=== PATIENT | female | born 1970 | race African-American/Black ===

== ENCOUNTER → 2016-11-03 | Outpatient (CLI) | payer OTHER ==
--- NOTE | 2016-11-03 14:37 | REPMRS ---
Patient History The patient states she had a clinical breast exam in August 2016. Family history of breast cancer in maternal cousin at age 49. Digital Mammo Screening Bilat: November 03, 2016 - Exam #: [id number] Bilateral CC and MLO view(s) were taken. Technologist: Nga Maldonado Technologist Prior study comparison: November 01, 2014, digital bilateral screening mammo, performed at [facility]. FINDINGS: There are scattered fibroglandular densities. There has been no change in the appearance of the mammogram from the prior studies. There is a mild amount of scattered fibroglandular density which is fairly symmetric. There is no interval development of dominant mass, architectural distortion, or clustered microcalcification suggestive of malignancy. ASSESSMENT: BI-RADS/ACR category 1 mammogram. Negative. Recommendation Routine screening mammogram in 1 year (for women over age 40). This mammogram was interpreted with the aid of an FDA-approved computer-aided dectection system. Electronically Signed By: Derek Vázquez MD 11/03/16 [id number]
== END ==
LOC: M RAD 13:22
PROVIDERS: ATTEND Obstetrics & Gynecology
DX: Z12.31 Encounter for screening mammogram for malignant neoplasm of breast (principal)

== ENCOUNTER → 2018-09-01 | Outpatient (CLI) | payer OTHER ==
--- NOTE | 2018-09-01 19:10 | REP ---
MRI RIGHT WRIST WITH AND WITHOUT CONTRAST: HISTORY: Palpable lump dorsal forearm distally. Areas marked on the skin. Multiple sequences are obtained in the axial, coronal and sagittal planes prior to and following the intravenous administration of 20 mL ProHance. At the site of the palpable lump fatty tissue is seen which is not encapsulated. The area involved is approximately 3.5 cm in length with a thickness of about 8 mm and a width transversely of 2.8 cm. This follows fat signal on all sequences and does not significantly enhance consistent with focal poorly encapsulated lipoma or lipomatous proliferation. There is no other cystic or solid mass seen in this region. No other abnormal enhancement is seen. There is a tear of the triangular fibrocartilage complex at the ulnar styloid insertion. Scapholunate and lunatotriquetral ligaments are intact. The flexor and extensor tendons are intact without evidence of tenosynovitis. There is mild fluid in the distal radial ulnar joint. There is no underlying abnormal bone marrow signal with no occult fracture. IMPRESSION: At the site of the palpable lump there is subcutaneous fat as discussed above most consistent with a poorly encapsulated lipoma. There is no abnormal enhancement in this region. There is a tear of the triangular fibrocartilage complex at the ulnar styloid insertion. There is mild fluid in the distal radial ulnar joint. Electronically Signed by Toro Donahue MD 09/04/2018 01:09 P
== END ==
LOC: M RAD 11:50
PROVIDERS: ATTEND Physician Assistant
DX: D17.21 Benign lipomatous neoplasm of skin and subcutaneous tissue of right arm (principal)

== ENCOUNTER 2019-10-11 15:35 | Emergency (ER) | payer OTHER ==
[~2019-10-11] VITALS: Ht 162.6 cm; Wt 105.3 kg
[2019-10-11] MEDS ORDERED: ATOR1TAB19 (15:48)
[2019-10-11] MEDS ORDERED: LOSA100T50 (15:48)
[2019-10-11] MEDS ORDERED: DILT1CAP46 (15:48)
[2019-10-11] MEDS ORDERED: VITA50005 (15:48)
[2019-10-11] MEDS ORDERED: HYDR25TAB (15:48)
[2019-10-11] MEDS ORDERED: CARV12.5 (15:48)
--- NOTE | 2019-10-11 17:00 | REPVR ---
PROCEDURE INFORMATION: Exam: XR Chest, 1 View Exam date and time: 10/11/2019 4:40 PM Age: 49 years old Clinical indication: Chest pain TECHNIQUE: Imaging protocol: XR of the chest Views: 1 view. COMPARISON: No relevant prior studies available. FINDINGS: Lungs: Unremarkable. No consolidation. Pleural space: Unremarkable. No pleural effusion. No pneumothorax. Heart/Mediastinum: Unremarkable. No cardiomegaly. Bones/joints: Unremarkable. IMPRESSION: No acute findings. Electronically signed by: Ivan Garduno On 10/11/2019 17:00:15 PM
[2019-10-11 17:09] LABS: BASO % 0.2 % (0.0-1.0); EOS # 0.1 10^3/uL (0.0-0.5); EOS % 0.9 % (0.0-3.0); HEMATOCRIT 39.5 % (36.0-47.0); LYMPH # 1.5 10^3/uL (1.5-5.0); LYMPH % 27.4 % (24.0-44.0); MEAN CORPUSCULAR HEMOGLOBIN 32.1 pg (27.0-33.0); MEAN CORPUSCULAR HGB CONC 32.9 g/dl (32.0-36.5); MEAN CORPUSCULAR VOLUME 97.5 fl (80.0-96.0); MONO # 0.3 10^3/uL (0.0-0.8); MONO % 5.9 % (0.0-5.0); NEUTROPHILS # 3.7 10^3/uL (1.5-8.5); NEUTROPHILS % 65.4 % (36.0-66.0); PLATELET COUNT, AUTOMATED 232 10^3/uL (150-450); RED BLOOD COUNT 4.05 10^6/uL (4.00-5.40); WHITE BLOOD COUNT 5.6 10^3/uL (4.0-10.0)
[2019-10-11 17:33] LABS: ALBUMIN 3.7 GM/DL (3.2-5.2); ALT/SGPT 18 U/L (12-78); BILIRUBIN,DIRECT 0.1 MG/DL (0.0-0.2); BILIRUBIN,TOTAL 0.4 MG/DL (0.2-1.0); BLOOD UREA NITROGEN 13 MG/DL (7-18); CALCIUM LEVEL 9.1 MG/DL (8.5-10.1); CARBON DIOXIDE LEVEL 30 MEQ/L (21-32); CHLORIDE LEVEL 107 MEQ/L (98-107); CK-MB VALUE MASS < 1.0 NG/ML (<3.6); CPK CREATINE PHOSPHOKINASE 89 U/L (26-192); CREATININE FOR GFR 1.13 MG/DL (0.55-1.30); GLOMERULAR FILTRATION RATE > 60.0 (>58); GLUCOSE, FASTING 91 MG/DL (70-100); MB/CK RELATIVE INDEX 1.12 (< OR =4); POTASSIUM SERUM 3.3 MEQ/L (3.5-5.1); SODIUM LEVEL 139 MEQ/L (136-145); TOTAL PROTEIN 7.6 GM/DL (6.4-8.2); TROPONIN I < 0.02 NG/ML (< 0.10)
[2019-10-11 18:20] VITALS: BP 152/77
--- NOTE | 2019-10-31 14:12 | ECGEPIP ---
[facility] - ED Test Date: 2019-10-11 Pat Name: ELHAM LEAL Department: Room: - Gender: Female Molded Candles Wicker: sheila : 1970 Requested By: ANNMARIE RUELAS Order Number: [id number] Reading MD: Leonela Mireles Measurements Intervals [place] Rate: 42 P: 50 [place]: 206 QRS: 1 QRSD: 105 T: 24 QT: 467 QTc: 391 Interpretive Statements SINUS BRADYCARDIA MINIMAL VOLTAGE CRITERIA FOR LVH, CONSIDER NORMAL VARIANT NONSPECIFIC T-WAVE ABNORMALITY BORDERLINE ECG SEE SCANNED DOWNTIME REPORT
== END 2019-10-11 18:26 | disposition home or self-care (01) ==
LOC: M ED 15:35
DX: R00.1 Bradycardia, unspecified (principal); I10 Essential (primary) hypertension; Z79.899 Other long term (current) drug therapy

== ENCOUNTER 2020-10-12 08:22 | Emergency (ER) | payer OTHER ==
[~2020-10-12] VITALS: Ht 162.6 cm; Wt 109.1 kg
[~2020-10-12 08:22] MED LIST: ATOR1TAB19; CARV12.5; DILT1CAP46; ERGO500029; HYDR-3490; LOSA100T50
[2020-10-12] MEDS ORDERED: ALPRAZolam 0.5 MG TAB PO ONE (08:50)
[2020-10-12 11:07] VITALS: BP 139/75
== END 2020-10-12 11:32 | disposition home or self-care (01) ==
LOC: M ED 08:22 → EDBD 08:22 → M ED 11:32
DX: F41.0 Panic disorder [episodic paroxysmal anxiety] (principal); I10 Essential (primary) hypertension; E78.5 Hyperlipidemia, unspecified

== ENCOUNTER 2020-12-30 11:51 | Emergency (ER) | payer OTHER ==
[~2020-12-30] VITALS: Ht 162.6 cm; Wt 110.6 kg
[2020-12-30] MEDS ORDERED: DILT240C83 (11:57)
[2020-12-30] MEDS ORDERED: VALS1TAB67 (11:57)
[2020-12-30 12:23] LABS: BASO % 0.2 % (0.0-1.0); EOS # 0.1 10^3/uL (0.0-0.5); EOS % 1.1 % (0.0-3.0); HEMOGLOBIN 13.5 g/dl (12.0-15.5); LYMPH # 1.6 10^3/uL (1.5-5.0); LYMPH % 29.1 % (24.0-44.0); MEAN CORPUSCULAR HEMOGLOBIN 32.3 pg (27.0-33.0); MEAN CORPUSCULAR HGB CONC 33.8 g/dl (32.0-36.5); MEAN CORPUSCULAR VOLUME 95.7 fl (80.0-96.0); MONO # 0.3 10^3/uL (0.0-0.8); MONO % 6.1 % (2.0-8.0); NEUTROPHILS # 3.5 10^3/uL (1.5-8.5); NEUTROPHILS % 63.1 % (36.0-66.0); PLATELET COUNT, AUTOMATED 301 10^3/uL (150-450); RED BLOOD COUNT 4.18 10^6/uL (4.00-5.40); WHITE BLOOD COUNT 5.6 10^3/uL (4.0-10.0)
--- NOTE | 2020-12-30 12:38 | REP ---
INDICATION: CHEST PAIN. COMPARISON: 10/11/2019. TECHNIQUE: Single portable AP view of the chest was performed. FINDINGS: There is no acute infiltrate or pulmonary edema. Lungs are clear. The heart is not significantly enlarged. The mediastinal silhouette is unremarkable. The visualized osseous structures are intact. IMPRESSION: No acute pulmonary disease. <Electronically signed by Toro Donahue > 12/30/20 [id number]
[2020-12-30 12:54] LABS: BLOOD UREA NITROGEN 14 MG/DL (7-18); CALCIUM LEVEL 9.7 MG/DL (8.5-10.1); CARBON DIOXIDE LEVEL 27 MEQ/L (21-32); CHLORIDE LEVEL 106 MEQ/L (98-107); CK-MB VALUE MASS < 1.0 NG/ML (<3.6); CPK CREATINE PHOSPHOKINASE 78 U/L (26-192); CREATININE FOR GFR 0.97 MG/DL (0.55-1.30); GLOMERULAR FILTRATION RATE > 60.0 (>51); GLUCOSE, FASTING 102 MG/DL (70-100); MB/CK RELATIVE INDEX 1.28 (< OR =4); POTASSIUM SERUM 3.8 MEQ/L (3.5-5.1); SODIUM LEVEL 138 MEQ/L (136-145); TROPONIN I < 0.02 NG/ML (< 0.10)
--- OUTSIDE RECORDS SUMMARY | 2020-12-30 12:54 | CCD | Continuity of Care Document ---
Author Author Mia CLAYTON M.D. Organization Unknown Address [address] [place] [id number] Phone [phone] Care Team Providers Care Manager Coding Name Role Phone Adán Clayton M.D. [facility] [phone] [facility] [phone] [facility] Sleep Center [facility] [phone] [facility] Cardiology- [place] [facility] Therapy Services [facility] [phone] Problems Active Problems Provider Date Essential hypertension Adán Clayton MD Onset: 01/06/2016 Lipoma of skin Adán Clayton MD Onset: 01/06/2016 Obesity Adán Clayton MD Onset: 01/06/2016 Body mass index 40+ - severely obese Adán Clayton MD Ons et: 01/06/2016 Vitamin D deficiency Adán Clayton MD Onset: 01/06/2016 Impacted cerumen Adán Clayton MD Onset: 01/06/2016 Dizziness and giddiness Adán Clayton MD Onset: 7 Microscopic hematuria Adán Clayton MD Onset: 06/07/2016 Mood disorder Adán Clayton MD Onset: 09/07/2016 Morbid obesity Adán Clayton MD Onset: 09/07/2016 Hyperlipidemia Adán Clayton MD Onset: 01/15/2020 Social History Type Date Description Comments Sex Unknown Tobacco Use Start: Unknown Never Smoked Cigarettes Tobacco Use Start: Unknown Never Smoked Cigars Tobacco Use Start: Unknown Never Smoked A Pipe Tobacco Use Start: Unknown Never Used Smokeless Tobacco ETOH Use Denies alcohol use Tobacco Use Start: Unknown Patient has never smoked Recreational Drug Use Denies Drug Use Exercise Type/Frequency Does not exercise Seat Belt/Car Seat Always uses seat belt Allergies, Adverse Reactions, Alerts Active Allergies Criticality Reaction | Severity Comments Date NKDA Unable to assess criticality 01/06/2016 NKFA Unable to assess criticality 03/10/2016 NKEA Unable to assess criticality 03/10/2016 Medications Active Medications SIG Qnty Indications Ordering Provide r Date Triamcinolone Acetonide 0.5% Cream apply thin layer to chest wall and truck twice a day for 2-4 weeks 45gm L23.1 Adán Clayton MD 07/02/2020 Valsartan 160mg Tablets Take 1 tablet by mouth once daily 90tabs I10 Adán Clayton MD 03/24/2020 Cartia XT 240mg Caps ER 24HR take 1 capsule by mouth once daily 90caps I10 Adán Clayton MD 01/15/2020 Spironolactone 25mg Tablets 1 tab by mouth every day 90tabs I10 Adán Clayton MD 10/23/2019 Atorvastatin Calcium 10mg Tablets 1 tab by mouth every day 90tabs E78.5 Adán Clayton MD 07/31/2019 Vitamin D (Ergocalciferol) 1.25mg (21265 Ut) Capsules 1 cap by mouth every week 12caps E55.9 Adán Clayton MD 02/22/2019 Hydrochlorothiazide 25mg Tablets 1 by mouth every day 90tabs I10 Adán Clayton MD 10/18/2017 Diphenhydramine HCL (Sleep) 50mg T ablets 1 tab prn ( OTC) Unknown Immunizations Description No Information Available Vital Signs Date Vital Result Comment 11/12/2020 1:58pm BP Systolic 110 mmHg BP Diastolic 80 mmHg Heart Rate 68 /min Body Temperature 96.0 F Respiratory Rate 18 /min O2 % BldC Oximetry 98 % Weight 241.00 lb Weight 109.318 kg Height 64 inches 5'4" BMI (Body Mass Index) 41.4 kg/m2 BSA (Body Surface Area) 2.12 m2 10/07/2020 12:54pm BP Systolic 120 mmHg BP Diastolic 80 mmHg Heart Rate 85 /min Body Temperature 97.3 F Respiratory Rate 16 /min O2 % BldC Oximetry 98 % Weight 242.50 lb Weight 109.998 kg Height 64 inches 5'4" BMI (Body Mass Index) 41.6 kg/m2 BSA (Body Surface Area) 2.12 m2 Results Test Acquired Date Facility Test Result H/L Range Note Covid-19 06/05/2020 [facility] Sars-CoV-2, Neelam Not Detected Not Detected 1 Sars-CoV-2, Neelam 2 Day Tat Performed 1 This nucleic acid amplificat ion test was developed and its performance characteristics determined by [facility]. Nucleic acid amplification tests include RT-PCR and TMA. This test has not been FDA cleared or approved. This test has been authorized by FDA under an Emergency Use Authorization (EUA). This test is only authorized for the duration of time the declaration that circumstances exist justifying the authorization of the emergency use of in vitro diagnostic tests for detection of SARS-CoV-2 virus and/or diagnosis of COVID-19 infection under section 564(b)(1) of the Act, 21 U.S.C. 360bbb-3(b) (1), unless the authorizatio n is terminated or revoked sooner. When diagnostic testing is negative, the possibility of a false negative result should be considered in the context of a patient's recent exposures and the presence of clinical signs and symptoms consistent with COVID-19. An individual without symptoms of COVID-19 and who is not shedding SARS-CoV-2 virus would expect to have a negative (not detected) result in this assay. Procedures Date Code Description Status 10/07/2020 61448 Preventive Visit Est 40-64 Yrs C ompleted 09/03/2020 34614 Office/Outpatient Established Lo w MDM 20-29 Min Completed 07/02/2020 88409 Office/Outpatient Established Lo w MDM 20-29 Min Completed 11/03/2016 16722800 Mammogram Completed Medical Devices Description No Information Available Encounters Description No Information Available Assessments Date Code Description Provider 10/07/2020 Z01.419 Encounter for gyneco logical examination (general) (routine) without abnormal findings Elzbieta Syed NP 09/03/2020 I10 Essential (primary) hypertension Adán Clayton MD 09/03/2020 E66.9 Obesity, unspecified Adán valente MD 09/03/2020 M25.562 Pain in left knee Adán schmid MD 07/02/2020 I10 Essential (primary) hypertension Adán Clayton MD 07/02/2020 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 Pls eval and treat. Closed [address] [place] [address] [phone]
[2020-12-30] MEDS ORDERED: NS 1,000 ML IV ONE (13:45)
[2020-12-30] MEDS ORDERED: NITROGLYCERIN 0.3 MG SUBL TAB SL PRN (13:45)
[2020-12-30] MEDS ORDERED: ASPIRIN 81 MG CHEW TABLET PO ONE (13:45)
[2020-12-30] MEDS ORDERED: NITROGLYCERIN 0.4 MG SUBL TABLET SL PRN (13:55)
[2020-12-30] MEDS ORDERED: ISOVUE-370 76% 100ML VIAL As Ordered ONE (14:19)
--- NOTE | 2020-12-30 15:21 | REP ---
INDICATION: chest pain COMPARISON: None. TECHNIQUE: CT angiography of chest attention pulmonary arteries after the intravenous administration of 75 cc Isovue 370. FINDINGS: There is excellent visualization of the pulmonary arterial vasculature. No focal filling defects are present that would be considered consistent with acute pulmonary emboli. Limited evaluation of the thoracic aorta shows no gross abnormality. There are no pleural or pericardial effusions. There is no mediastinal or hilar adenopathy. The imaged upper abdomen and imaged osseous structures are within normal limits. Evaluation of the lung saucedo shows a 5 mm size nodule in the right upper lobe. No additional abnormal nodules, masses, or opacities are identified. IMPRESSION: 1. There is no evidence of a pulmonary embolus. 2. There is a 5 mm size nodule in the right upper lobe. According to the revised Fleischner society criteria this represents a category 3 lesion for which a six-month follow-up standard chest CT is recommended. <Electronically signed by Gil Sweeney > 12/30/20 [id number]
[2020-12-30 18:31] VITALS: BP 139/77
--- NOTE | 2020-12-30 19:36 | ECGEPIP ---
[facility] - ED Test Date: 2020-12-30 Pat Name: ELHAM LEAL Department: Room: - Gender: Female Film Reader: SOLANGE : 1970 Requested By: GRAEME Orozco Order Number: [id number] Reading MD: Nova Robertson Measurements Intervals [place] Rate: 60 P: 52 [place]: 198 QRS: 1 QRSD: 104 T: 35 QT: 416 QTc: 416 Interpretive Statements Normal sinus rhythm Minimal voltage criteria for LVH, may be normal variant ( Sampson product ) Nonspecific ST T wave changes Delayed R wave progression Baseline wandering may affect reading cw 10/11/[address] T wave changes Electronically Signed on 12-30-2020 19:36:35 EST by Nova Robertson
--- NOTE | 2020-12-30 19:38 | ECGEPIP ---
[facility] - ED Test Date: 2020-12-30 Pat Name: ELHAM LEAL Department: Room: - Gender: Female Automobile Appraiser: CYRUS : 1970 Requested By: Nova Robertson Order Number: [id number] Reading MD: Nova Robertson Measurements Intervals [place] Rate: 65 P: 56 [place]: 182 QRS: 4 QRSD: 90 T: 20 QT: 382 QTc: 397 Interpretive Statements Normal sinus rhythm Minimal voltage criteria for LVH, may be normal variant ( Sampson product ) Nonspecific ST T wave changes Delayed R wave progression cw 12/30/[address] T wave changes Electronically Signed on 12-30-2020 19:37:51 EST by Nova Robertson
--- NOTE | 2020-12-30 19:50 | ECGEPIP ---
[facility] - ED Test Date: 2020-12-30 Pat Name: ELHAM LEAL Department: Room: - Gender: Female Inspector Chief: BRAXTON : 1970 Requested By: Anthony Gonzalez Order Number: [id number] Reading MD: Nova Robertson Measurements Intervals [place] Rate: 55 P: 40 [place]: 196 QRS: 9 QRSD: 90 T: 20 QT: 424 QTc: 405 Interpretive Statements Sinus bradycardia Minimal voltage criteria for LVH, may be normal variant ( Sampson product ) Nonspecific ST T wave changes Delayed R wave progression cw 12/30/[address] T wave changes Electronically Signed on 12-30-2020 19:49:51 EST by Nova Robertson
--- NOTE | 2020-12-31 09:51 | ED PDOC ---
Post-Departure Follow-Up cta chest faxed to dr lagos for fu Nova Chang MD Dec 31, 2020 09:51
== END 2020-12-30 19:26 | disposition home or self-care (01) ==
LOC: M ED 11:51
DX: R07.9 Chest pain, unspecified (principal); R91.1 Solitary pulmonary nodule; I10 Essential (primary) hypertension; E78.5 Hyperlipidemia, unspecified; Z83.2 Family history of diseases of the blood and blood-forming organs and certain disorders involving the immune mechanism; Z82.49 Family history of ischemic heart disease and other diseases of the circulatory system
CPT/HCPCS: 71045; 71275; 80048; 82550; 82553; 85025; 93005; 93041; 94760; 96360; 96361; 99285; Q9967

== ENCOUNTER → 2022-02-24 | Outpatient (REF) ==
[~2022-02-24] MED LIST changes: +DILT240C83; +LOSA100T45; -LOSA100T50; +SPIR-10 PO; +VALS1TAB67
== END ==
LOC: M LAB 12:20
PROVIDERS: ATTEND Nurse Practitioner Adult Health
DX: Z02.1 Encounter for pre-employment examination (principal)

== ENCOUNTER → 2022-06-22 | Outpatient (CLI) | payer OTHER ==
[~2022-06-22] MED LIST changes: +CART240C3 PO; -LOSA100T45; +LOSA100T46; +ROSU5TAB5
[2022-06-22 09:28] LABS: APPEARANCE, URINE CLEAR (CLEAR); BACTERIA, URINE AUTO NEGATIVE (NEGATIVE); BILIRUBIN, URINE AUTO NEGATIVE (NEGATIVE); BLOOD, URINE BLOOD 1+ (NEGATIVE); COLOR, URINE YELLOW (YELLOW); GLUCOSE, URINE (UA) AUTO NEGATIVE (NEGATIVE); KETONE, URINE AUTO NEGATIVE (NEGATIVE); LEUKOCYTE ESTERASE, URINE AUTO NEGATIVE (NEGATIVE); MUCUS, URINE SMALL (NEGATIVE); NITRITE, URINE AUTO NEGATIVE (NEGATIVE); PROTEIN, URINE AUTO NEGATIVE (NEGATIVE); RBC, URINE AUTO 3 /HPF (0-3); SPECIFIC GRAVITY URINE AUTO 1.023 (1.002-1.035); SQUAMOUS EPITHELIAL CELL UR AU 0 /HPF (0-6); UROBILINOGEN, URINE AUTO 0.2 mg/dL (0.0-2.0); WBC, URINE AUTO 1 /HPF (0-3)
[2022-06-22 09:41] LABS: BASO % 0.4 % (0.0-1.0); EOS % 0.6 % (0.0-3.0); HEMATOCRIT 40.9 % (36.0-47.0); HEMOGLOBIN 13.5 g/dl (12.0-15.5); LYMPH # 1.2 10^3/uL (1.5-5.0); LYMPH % 22.4 % (24.0-44.0); MEAN CORPUSCULAR HEMOGLOBIN 32.7 pg (27.0-33.0); MONO # 0.2 10^3/uL (0.0-0.8); MONO % 4.6 % (2.0-8.0); NEUTROPHILS # 3.7 10^3/uL (1.5-8.5); NEUTROPHILS % 71.6 % (36.0-66.0); PLATELET COUNT, AUTOMATED 290 10^3/uL (150-450); RED BLOOD COUNT 4.13 10^6/uL (4.00-5.40); WHITE BLOOD COUNT 5.2 10^3/uL (4.0-10.0)
[2022-06-22 10:05] LABS: ALBUMIN 4.1 G/DL (3.2-5.2); ALKALINE PHOSPHATASE 94 U/L (46-116); ALT/SGPT 32 U/L (7.0-40); AST/SGOT 18 U/L (<34); BILIRUBIN,TOTAL 0.5 MG/DL (0.3-1.2); BLOOD UREA NITROGEN 18 MG/DL (9-23); CALCIUM LEVEL 9.3 MG/DL (8.5-10.1); CARBON DIOXIDE LEVEL 27 MMOL/L (20-31); CHLORIDE LEVEL 107 MMOL/L (98-107); CHOLESTEROL LEVEL 167 MG/DL (<200); CHOLESTEROL RISK RATIO 3.06 (<5); CREATININE FOR GFR 0.92 MG/DL (0.55-1.30); GLOMERULAR FILTRATION RATE > 60.0 (>51); GLUCOSE, FASTING 88 MG/DL (60-100); HDL CHOLESTEROL 54.4 MG/DL (>40); LDL CHOLESTEROL 100.4 MG/DL (<100); NON-HDL-C 112.6 MG/DL; POTASSIUM SERUM 4.3 MMOL/L (3.5-5.1); SODIUM LEVEL 141 MMOL/L (136-145); TOTAL PROTEIN 7.5 G/DL (5.7-8.2); TRIGLYCERIDES LEVEL 61 MG/DL (<150)
[2022-06-22 10:06] LABS: TOTAL 25(OH) VITAMIN D 84.7 NG/ML (20.0-100.0)
[2022-06-22 10:07] LABS: FREE T4 0.96 NG/DL (0.89-1.76)
== END ==
LOC: M LAB 08:16
PROVIDERS: ATTEND Family Medicine
DX: I10 Essential (primary) hypertension (principal); E55.9 Vitamin D deficiency, unspecified; E66.9 Obesity, unspecified; E78.5 Hyperlipidemia, unspecified; R73.9 Hyperglycemia, unspecified; L23.9 Allergic contact dermatitis, unspecified cause

== ENCOUNTER 2022-06-27 02:28 | Emergency (ER) | payer OTHER ==
[~2022-06-27] VITALS: Ht 162.6 cm; Wt 107.7 kg
[~2022-06-27 02:28] MED LIST changes: -CART240C3 PO; -ROSU5TAB5
[2022-06-27] MEDS ORDERED: CART240C3 PO (07:57)
[2022-06-27] MEDS ORDERED: ROSU5TAB5 (07:57)
[2022-06-27] MEDS ORDERED: KETOROLAC 30 MG/ML 1ML VIAL IV ONE (08:25)
[2022-06-27] MEDS ORDERED: NS 1,000 ML IV ONE (08:25)
[2022-06-27 08:45] LABS: BASO % 0.2 % (0.0-1.0); EOS % 0.5 % (0.0-3.0); HEMATOCRIT 38.9 % (36.0-47.0); HEMOGLOBIN 12.8 g/dl (12.0-15.5); LYMPH # 1.5 10^3/uL (1.5-5.0); LYMPH % 25.1 % (24.0-44.0); MEAN CORPUSCULAR HEMOGLOBIN 32.6 pg (27.0-33.0); MEAN CORPUSCULAR HGB CONC 32.9 g/dl (32.0-36.5); MONO # 0.4 10^3/uL (0.0-0.8); NEUTROPHILS # 4.2 10^3/uL (1.5-8.5); PLATELET COUNT, AUTOMATED 260 10^3/uL (150-450); RED BLOOD COUNT 3.93 10^6/uL (4.00-5.40); WHITE BLOOD COUNT 6.1 10^3/uL (4.0-10.0)
[2022-06-27 09:18] LABS: ALBUMIN 3.6 G/DL (3.2-5.2); BILIRUBIN,DIRECT 0.2 MG/DL (<0.4); BILIRUBIN,TOTAL 0.6 MG/DL (0.3-1.2); CALCIUM LEVEL 9.5 MG/DL (8.5-10.1); MAGNESIUM LEVEL 1.8 MG/DL (1.8-2.4); TOTAL PROTEIN 7.1 G/DL (5.7-8.2)
[2022-06-27 09:21] LABS: THYROID STIMULATING HORMONE 1.09 uIU/ML (0.55-4.78)
[2022-06-27 11:00] LABS: APPEARANCE, URINE CLEAR (CLEAR); BACTERIA, URINE AUTO NEGATIVE (NEGATIVE); BILIRUBIN, URINE AUTO NEGATIVE (NEGATIVE); BLOOD, URINE BLOOD NEGATIVE (NEGATIVE); COLOR, URINE YELLOW (YELLOW); GLUCOSE, URINE (UA) AUTO NEGATIVE (NEGATIVE); KETONE, URINE AUTO NEGATIVE (NEGATIVE); LEUKOCYTE ESTERASE, URINE AUTO NEGATIVE (NEGATIVE); MUCUS, URINE SMALL (NEGATIVE); NITRITE, URINE AUTO NEGATIVE (NEGATIVE); PROTEIN, URINE AUTO NEGATIVE (NEGATIVE); RBC, URINE AUTO 7 /HPF (0-3); SPECIFIC GRAVITY URINE AUTO 1.023 (1.002-1.035); SQUAMOUS EPITHELIAL CELL UR AU 0 /HPF (0-6); UROBILINOGEN, URINE AUTO 0.2 mg/dL (0.0-2.0); WBC, URINE AUTO 1 /HPF (0-3)
[2022-06-27 11:09] VITALS: BP 159/92
== END 2022-06-27 11:18 | disposition home or self-care (01) ==
LOC: M ED 02:28
DX: R51.9 Headache, unspecified (principal); I10 Essential (primary) hypertension; R00.1 Bradycardia, unspecified; E78.5 Hyperlipidemia, unspecified; Z79.811 Long term (current) use of aromatase inhibitors; Z79.899 Other long term (current) drug therapy
CPT/HCPCS: 70450; 80047; 80076; 81001; 82310; 83735; 84443; 85025; 93005; 96361; 96374; 99284; J1885

== ENCOUNTER → 2022-09-02 | Outpatient (CLI) | payer OTHER ==
[~2022-09-02] MED LIST changes: +CART240C3 PO; +ROSU5TAB5
[2022-09-02 09:58] LABS: APPEARANCE, URINE CLEAR (CLEAR); BACTERIA, URINE AUTO NEGATIVE (NEGATIVE); BILIRUBIN, URINE AUTO NEGATIVE (NEGATIVE); BLOOD, URINE BLOOD NEGATIVE (NEGATIVE); COLOR, URINE YELLOW (YELLOW); GLUCOSE, URINE (UA) AUTO NEGATIVE (NEGATIVE); KETONE, URINE AUTO NEGATIVE (NEGATIVE); LEUKOCYTE ESTERASE, URINE AUTO NEGATIVE (NEGATIVE); MUCUS, URINE SMALL (NEGATIVE); NITRITE, URINE AUTO NEGATIVE (NEGATIVE); PROTEIN, URINE AUTO NEGATIVE (NEGATIVE); RBC, URINE AUTO 4 /HPF (0-3); SPECIFIC GRAVITY URINE AUTO 1.021 (1.002-1.035); SQUAMOUS EPITHELIAL CELL UR AU 0 /HPF (0-6); UROBILINOGEN, URINE AUTO 0.2 mg/dL (0.0-2.0); WBC, URINE AUTO 1 /HPF (0-3)
[2022-09-02 10:01] LABS: BASO % 0.2 % (0.0-1.0); EOS # 0.1 10^3/uL (0.0-0.5); EOS % 1.5 % (0.0-3.0); HEMATOCRIT 40.3 % (36.0-47.0); HEMOGLOBIN 13.2 g/dl (12.0-15.5); LYMPH # 1.6 10^3/uL (1.5-5.0); LYMPH % 30.5 % (24.0-44.0); MEAN CORPUSCULAR HEMOGLOBIN 32.1 pg (27.0-33.0); MEAN CORPUSCULAR HGB CONC 32.8 g/dl (32.0-36.5); MEAN CORPUSCULAR VOLUME 98.1 fl (80.0-96.0); MONO # 0.4 10^3/uL (0.0-0.8); MONO % 7.3 % (2.0-8.0); NEUTROPHILS # 3.2 10^3/uL (1.5-8.5); NEUTROPHILS % 60.3 % (36.0-66.0); PLATELET COUNT, AUTOMATED 294 10^3/uL (150-450); RED BLOOD COUNT 4.11 10^6/uL (4.00-5.40); WHITE BLOOD COUNT 5.3 10^3/uL (4.0-10.0)
[2022-09-02 10:25] LABS: HEMOGLOBIN A1c 5.1 % (4.0-6.0)
[2022-09-02 10:33] LABS: ALBUMIN 3.8 G/DL (3.2-5.2); ALKALINE PHOSPHATASE 98 U/L (46-116); ALT/SGPT 21 U/L (7.0-40); AST/SGOT 17 U/L (<34); BILIRUBIN,TOTAL 0.5 MG/DL (0.3-1.2); BLOOD UREA NITROGEN 16 MG/DL (9-23); CALCIUM LEVEL 10.3 MG/DL (8.5-10.1); CARBON DIOXIDE LEVEL 27 MMOL/L (20-31); CHLORIDE LEVEL 105 MMOL/L (98-107); CHOLESTEROL LEVEL 188 MG/DL (<200); CHOLESTEROL RISK RATIO 4.14 (<5); CREATININE FOR GFR 0.94 MG/DL (0.55-1.30); GLOMERULAR FILTRATION RATE > 60.0 (>51); GLUCOSE, FASTING 81 MG/DL (60-100); HDL CHOLESTEROL 45.4 MG/DL (>40); LDL CHOLESTEROL 121.4 MG/DL (<100); NON-HDL-C 142.6 MG/DL; POTASSIUM SERUM 4.2 MMOL/L (3.5-5.1); SODIUM LEVEL 139 MMOL/L (136-145); TOTAL PROTEIN 7.4 G/DL (5.7-8.2); TRIGLYCERIDES LEVEL 106 MG/DL (<150)
[2022-09-02 10:35] LABS: FREE T4 0.92 NG/DL (0.89-1.76); THYROID STIMULATING HORMONE 1.339 uIU/ML (0.55-4.78)
== END ==
LOC: M LAB 08:49
PROVIDERS: ATTEND Family Medicine
DX: I10 Essential (primary) hypertension (principal); E55.9 Vitamin D deficiency, unspecified; E66.9 Obesity, unspecified; E78.5 Hyperlipidemia, unspecified; R73.9 Hyperglycemia, unspecified; L23.9 Allergic contact dermatitis, unspecified cause

== ENCOUNTER 2023-08-02 20:10 | Emergency (ER) | payer OTHER ==
[~2023-08-02] VITALS: Ht 162.6 cm; Wt 110.4 kg
[~2023-08-02 20:10] MED LIST changes: -DILT1CAP46; +DILT360C22; +ROSU5TAB40; -ROSU5TAB5
[2023-08-02 21:02] LABS: BASO % 0.3 % (0.0-1.0); EOS # 0.1 10^3/uL (0.0-0.5); EOS % 0.7 % (0.0-3.0); HEMATOCRIT 40.9 % (36.0-47.0); HEMOGLOBIN 13.6 g/dl (12.0-15.5); LYMPH # 2.5 10^3/uL (1.5-5.0); MEAN CORPUSCULAR HEMOGLOBIN 32.1 pg (27.0-33.0); MEAN CORPUSCULAR HGB CONC 33.3 g/dl (32.0-36.5); MEAN CORPUSCULAR VOLUME 96.5 fl (80.0-96.0); MONO # 0.6 10^3/uL (0.0-0.8); MONO % 8.5 % (2.0-8.0); NEUTROPHILS % 55.2 % (36.0-66.0); PLATELET COUNT, AUTOMATED 308 10^3/uL (150-450); RED BLOOD COUNT 4.24 10^6/uL (4.00-5.40); WHITE BLOOD COUNT 7.2 10^3/uL (4.0-10.0)
[2023-08-02] MEDS: KETOROLAC 30 MG/ML 1ML VIAL IV ONE (21:10)
[2023-08-02] MEDS: NS 1,000 ML IV ONE (21:10)
[2023-08-02] MEDS: ONDANSETRON 4MG 2ML VIAL IV ONE (21:10)
[2023-08-02 21:35] LABS: ALBUMIN 3.7 G/DL (3.2-5.2); ALKALINE PHOSPHATASE 103 U/L (46-116); ALT/SGPT 18 U/L (7.0-40); AST/SGOT 11 U/L (<34); BILIRUBIN,TOTAL 0.2 MG/DL (0.3-1.2); BLOOD UREA NITROGEN 21 MG/DL (9-23); CARBON DIOXIDE LEVEL 28 MMOL/L (20-31); CHLORIDE LEVEL 106 MMOL/L (98-107); GLOMERULAR FILTRATION RATE > 60.0 (>51); GLUCOSE, FASTING 100 MG/DL (60-100); POTASSIUM SERUM 3.7 MMOL/L (3.5-5.1); SODIUM LEVEL 140 MMOL/L (136-145); TOTAL PROTEIN 7.3 G/DL (5.7-8.2)
[2023-08-02] MEDS ORDERED: KETO10TAB PO (22:10)
[2023-08-02 22:19] VITALS: BP 118/67; TEMP 97.5; O2SAT 100
== END 2023-08-02 22:21 | disposition home or self-care (01) ==
LOC: M ED 20:10
DX: R51.9 Headache, unspecified (principal); I10 Essential (primary) hypertension; Z79.83 Long term (current) use of bisphosphonates; Z79.84 Long term (current) use of oral hypoglycemic drugs; Z79.811 Long term (current) use of aromatase inhibitors; Z79.899 Other long term (current) drug therapy
CPT/HCPCS: 80053; 85025; 96361; 96374; 99283; J1885; J2405

== ENCOUNTER 2023-09-29 11:11 | Emergency (ER) | payer OTHER ==
[~2023-09-29] VITALS: Ht 162.6 cm; Wt 111.1 kg
[~2023-09-29 11:11] MED LIST changes: +KETO10TAB PO
[2023-09-29 13:28] LABS: BASO % 0.1 % (0.0-1.0); EOS % 0.1 % (0.0-3.0); HEMOGLOBIN 13.3 g/dl (12.0-15.5); LYMPH # 0.9 10^3/uL (1.5-5.0); LYMPH % 12.1 % (24.0-44.0); MEAN CORPUSCULAR HEMOGLOBIN 32.3 pg (27.0-33.0); MEAN CORPUSCULAR HGB CONC 33.3 g/dl (32.0-36.5); MEAN CORPUSCULAR VOLUME 97.1 fl (80.0-96.0); MONO # 0.3 10^3/uL (0.0-0.8); MONO % 3.7 % (2.0-8.0); NEUTROPHILS # 6.4 10^3/uL (1.5-8.5); NEUTROPHILS % 83.6 % (36.0-66.0); PLATELET COUNT, AUTOMATED 288 10^3/uL (150-450); RED BLOOD COUNT 4.12 10^6/uL (4.00-5.40); WHITE BLOOD COUNT 7.6 10^3/uL (4.0-10.0)
[2023-09-29 13:52] LABS: LIPASE 27 U/L (12-53)
[2023-09-29 13:54] LABS: ALBUMIN 3.8 G/DL (3.2-5.2); ALKALINE PHOSPHATASE 99 U/L (46-116); ALT/SGPT 24 U/L (7.0-40); AST/SGOT 12 U/L (<34); BILIRUBIN,DIRECT 0.2 MG/DL (<0.4); BILIRUBIN,TOTAL 0.4 MG/DL (0.3-1.2); BLOOD UREA NITROGEN 14 MG/DL (9-23); CALCIUM LEVEL 9.5 MG/DL (8.5-10.1); CARBON DIOXIDE LEVEL 29 MMOL/L (20-31); CHLORIDE LEVEL 108 MMOL/L (98-107); GLOMERULAR FILTRATION RATE > 60.0 (>51); GLUCOSE, FASTING 118 MG/DL (60-100); SODIUM LEVEL 139 MMOL/L (136-145); TOTAL PROTEIN 7.4 G/DL (5.7-8.2)
[2023-09-29] MEDS ORDERED: ISOVUE-370 76% 100ML VIAL As Ordered ONE (15:04)
[2023-09-29 15:46] VITALS: BP 128/67; TEMP 98; O2SAT 97
[2023-09-29] MEDS ORDERED: ONDA-282 PO (15:53)
[2023-09-29] MEDS: ACETAMINOPHEN 325 MG TAB PO ONE (16:11)
== END 2023-09-29 16:13 | disposition home or self-care (01) ==
LOC: M ED 11:11
DX: K52.9 Noninfective gastroenteritis and colitis, unspecified (principal); I10 Essential (primary) hypertension; Z79.811 Long term (current) use of aromatase inhibitors; Z79.83 Long term (current) use of bisphosphonates; Z79.899 Other long term (current) drug therapy
CPT/HCPCS: 36415; 74177; 80048; 80076; 83690; 85025; 87486; 87581; 87633; 87798; 99284; Q9967